=== PATIENT | female | born 1955 | race Asian ===

== ENCOUNTER 2018-05-27 08:36 | Outpatient (CLI) | payer BC ==
--- NOTE | 2018-05-27 11:33 | BD ---
BONE DENSITOMETRY USING DEXA: HISTORY: Postmenopausal screening for osteoporosis. FINDINGS: Lumbar Spine: BMD (g/cm2) L1 0.797 T-Score: -1.8 Z-Score: -0.5 L2 0.874 T-Score: -1.4 Z-Score: 0.0 L3 0.774 T-Score: -2.8 Z-Score: -1.3 L4 0.771 T-Score: -2.6 Z-Score: -1.1 L1-L4 0.804 T-Score: -2.2 Z-Score: -0.8 Femoral Neck: 0.611 T-Score: -2.1 Z-Score: -0.8 Total Femur: 0.913 T-Score: -0.2 Z-Score: 0.7 The 10-year fracture risk for a major osteoporotic fracture is 10% and for a hip fracture is 1.4%. Impression: Osteopenia. POS: [facility]
== END 2018-05-27 08:37 | disposition home or self-care (01) ==
LOC: BICMAMMO 08:36
PROVIDERS: ATTEND Internal Medicine Rheumatology
DX: M81.0 Age-related osteoporosis without current pathological fracture (principal); M85.80 Other specified disorders of bone density and structure, unspecified site
CPT/HCPCS: 77080

== ENCOUNTER 2023-11-30 10:42 | Outpatient (CLI) | payer MEDICARE | END 2023-11-30 10:43 | disposition home or self-care (01) | LOC: BICRAD 10:42 | PROVIDERS: ATTEND Internal Medicine | DX: R10.32 Left lower quadrant pain (principal); R93.5 Abnormal findings on diagnostic imaging of other abdominal regions, including retroperitoneum | CPT/HCPCS: 74019 ==

== ENCOUNTER 2024-09-15 08:29 | Outpatient (CLI) | payer MEDICARE, OTHER | END 2024-09-15 08:30 | disposition home or self-care (01) | LOC: BICMAMMO 08:29 | PROVIDERS: ATTEND Internal Medicine | DX: N64.4 Mastodynia (principal) | CPT/HCPCS: 76642; 77066; G0279 ==

== ENCOUNTER 2025-04-06 08:06 | Outpatient (CLI) | payer MEDICARE, OTHER | END 2025-04-06 08:07 | disposition home or self-care (01) | LOC: ULT 08:06 → EEVIPCON 08:06 → ULT 08:07 | PROVIDERS: ATTEND Internal Medicine Gastroenterology | DX: K82.4 Cholesterolosis of gallbladder (principal); K76.0 Fatty (change of) liver, not elsewhere classified; E11.9 Type 2 diabetes mellitus without complications; E78.5 Hyperlipidemia, unspecified; I10 Essential (primary) hypertension | CPT/HCPCS: 36415; 76705; 80053; 80061; 82550; 83036; 84439; 84443; 85025 ==

== ENCOUNTER 2025-07-02 09:39 | Outpatient (CLI) | payer MEDICARE, OTHER | END 2025-07-02 09:40 | disposition home or self-care (01) | LOC: BICRAD 09:39 | PROVIDERS: ATTEND Internal Medicine | DX: M81.0 Age-related osteoporosis without current pathological fracture (principal); M19.90 Unspecified osteoarthritis, unspecified site | CPT/HCPCS: 72100; 72170; 73565 ==